=== PATIENT | female | born 1980 | race Caucasian/White ===

== ENCOUNTER 2018-01-18 12:01 | Emergency (ER) | payer OTHER, MEDICAID, SELFPAY ==
--- NOTE | 2018-01-18 12:21 | ED.FEMALEGU ---
HPI - Female Genitourinary <HEIDI Nova - Last Filed: 01/19/18 12:40> General Chief complaint: Urogenital-Female Stated complaint: infection possibly from getting iud taken out Time Seen by Provider: 01/18/18 12:21 History of Present Illness HPI Narrative: 37-year-old female here for complaint of having white is vaginal discharge with follow odor over the last few days. She states that she has had vaginal infections in the past and is concerned that she has a new infection. She denies having any changes in sexual partners. She does have pain into her right pelvic region. She denies any fevers or chills. She denies any urinary symptoms. Last bowel movement was earlier today and was normal. No flank pain. Positive p.o. intake no nausea vomiting no other concerns or complaints MD Complaint: vaginal discharge Related Data Home Medications Medication Instructions Recorded Confirmed buprenorphine HCl 2 mg SUBLINGUAL QDAY #0 01/27/12 polyethylene glycol 3350 [Miralax] 17 gm PO QDAY #0 06/07/17 propranolol 10 mg PO BIDP #0 06/07/17 sennosides [senna] 8.6 mg PO PRN #0 06/07/17 gabapentin 300 mg PO DAILY 01/18/18 01/18/18 Previous Rx's Medication Instructions Recorded albuterol sulfate [Proventil HFA] 2 puff INH Q4-6H #1 inh 04/16/13 docusate sodium [Colace] 100 mg PO BIDP PRN #20 cap 06/07/17 metronidazole [Flagyl] 500 mg PO BID 7 Days #0 06/07/17 doxycycline monohydrate [Avidoxy] 100 mg PO BID #28 tab 01/18/18 metronidazole 500 mg PO BID #28 tab 01/18/18 Allergies Allergy/AdvReac Type Severity Reaction Status Date / Time No Known Drug Allergies Allergy Verified 01/18/18 12:53 Review of Systems <HEIDI Nova - Last Filed: 01/19/18 12:40> Constitutional Denies chills, Denies fever(s), Denies lethargy and Denies weakness Eyes Denies change in vision, Denies eye discharge, Denies irritation and Denies loss of vision ENT Ears, Nose, Mouth, and Throat: Denies change in voice, Denies neck pain and Denies sore throat Cardiovascular Denies chest pain, Denies irregular heart rhythm, Denies lightheadedness, Denies palpitations, Denies dyspnea, Denies dyspnea on exertion and Denies orthopnea Respiratory Denies cough, Denies dyspnea, Denies dyspnea on exertion and Denies wheezing Gastrointestinal Gastrointestinal: Denies abdominal pain, Denies change in bowel habits, Denies diarrhea, Denies nausea and Denies vomiting Genitourinary Reports pelvic pain and Reports vaginal discharge Musculoskeletal Denies neck pain Integumentary/Breasts Denies pruritus, Denies erythema, Denies rash and Denies wounds Neurologic Denies confusion, Denies loss of vision and Denies weakness Psychiatric Denies anxiety, Denies confusion, Denies depression, Denies homicidal ideation and Denies suicidal ideation Endocrine Denies palpitations Allergic/Immunologic Denies wheezing Exam <HEIDI Nova - Last Filed: 01/19/18 12:40> Initial Vital Signs Initial Vital Signs: Vital Signs Temperature 98.2 F 01/18/18 12:44 Pulse Rate 69 01/18/18 12:44 Respiratory Rate 20 01/18/18 12:44 Blood Pressure 133/90 H 01/18/18 12:44 Pulse Oximetry 99 01/18/18 12:44 Const General: cooperative and well developed Nutritional Appearance: well nourished Orientation: alert, awake, oriented x3 and not confused [facility] Mouth: oral mucosae normal and moist mucous membranes Eyes Eyelids: eyelids normal Conjunctivae: conjunctivae normal Sclera: sclerae normal Pupils: PERRL Resp Effort & Inspection: normal respiratory effort, able to speak in complete sentences, no respiratory distress and no use of accessory muscles Auscultation: clear to auscultation bilaterally, no rales, no rhonchi and no wheezes Cardio Rate: regular rate Rhythm: regular rhythm Heart Sounds: no click, no gallops, no murmurs and no rubs GI Inspection: non-distended Palpation: soft, no hepatosplenomegaly, No guarding, No pulsatile mass and tender (Right pelvic region) Auscultation: normal bowel sounds General: No CVA tenderness Speculum Exam - Vagina: normal appearance of the vagina and abnormal vaginal discharge white Speculum Exam - Cervix: normal appearance of the cervix, closed cervix, abnormal cervical discharge white, no lesions, no masses and cervical tenderness Bimanual Exam- Vagina & Uterus: cervical tenderness Bimanual Exam- Adnexa, other: adnexal tenderness Skin General: no rashes or lesions noted, No jaundice and No petechiae <DO Bhakti Boyd Last Filed: 01/19/18 15:01> Initial Vital Signs Initial Vital Signs: Vital Signs Temperature 98.2 F 01/18/18 12:44 Pulse Rate 69 01/18/18 12:44 Respiratory Rate 20 01/18/18 12:44 Blood Pressure 133/90 H 01/18/18 12:44 Pulse Oximetry 99 01/18/18 12:44 Course <HEIDI Nova - Last Filed: 01/19/18 12:40> Orders Ordered: Discontinued Medications Ceftriaxone Sodium 500 mg/ (Dextrose) 50 mls @ 100 mls/hr IV NOW ONE Stop: 01/18/18 15:00 Ceftriaxone Sodium 250 mg/ (Lidocaine HCl) 0.714 mls @ 2,570.4 mls/hr INJ NOW ONE Stop: 01/18/18 15:46 Last Infusion: 01/18/18 16:29 Dose: 0 mls/hr Admin: 01/18/18 16:01 Dose: 2,570.4 mls/hr Vital Signs - 8 hr 01/18/18 14:40 01/18/18 16:05 01/18/18 16:31 Pulse Rate 53 L 52 L 57 L Respiratory Rate 15 14 18 Blood Pressure 130/71 H Blood Pressure [Left Arm] 122/67 H 115/68 Pulse Oximetry 100 100 100 <DO Bhakti Boyd Last Filed: 01/19/18 15:01> Orders Ordered: Discontinued Medications Ceftriaxone Sodium 500 mg/ (Dextrose) 50 mls @ 100 mls/hr IV NOW ONE Stop: 01/18/18 15:00 Ceftriaxone Sodium 250 mg/ (Lidocaine HCl) 0.714 mls @ 2,570.4 mls/hr INJ NOW ONE Stop: 01/18/18 15:46 Last Infusion: 01/18/18 16:29 Dose: 0 mls/hr Admin: 01/18/18 16:01 Dose: 2,570.4 mls/hr Vital Signs - 8 hr 01/18/18 14:40 01/18/18 16:05 01/18/18 16:31 Pulse Rate 53 L 52 L 57 L Respiratory Rate 15 14 18 Blood Pressure 130/71 H Blood Pressure [Left Arm] 122/67 H 115/68 Pulse Oximetry 100 100 100 MDM - Female Genitourinary <HEIDI Nova - Last Filed: 01/19/18 12:40> Lab Data Result diagrams: 01/18/18 13:27 01/18/18 13:27 Lab Results 01/18/18 01/18/18 01/18/18 Range/Units 13:27 13:27 14:45 WBC 5.1 (4.5-11.0) X10^3/uL RBC 3.82 L (4.0-5.2) X10^6/uL Hgb 12.2 (12.0-16.0) g/dL Hct 35.6 L (36-46) % MCV 93.1 (80-100) fL MCH 32.0 (26-34) PG MCHC 34.3 (30-36) % RDW 13.7 (11.6-14.8) % Plt Count 147 L (150-400) X10^3/uL Neut % (Auto) 44.8 L (50-75) % Lymph % (Auto) 41.3 H (25-40) % [place] % (Auto) 8.9 (3-14) % Eos % (Auto) 4.0 (2-4) % Baso % (Auto) 1.0 (0-2) % Neut # (Auto) 2300 L (8488-9988) /uL Sodium 140 (137-145) mmol/L Potassium 4.7 (3.4-5.1) mmol/L Chloride 101 (98-107) mmol/L Carbon Dioxide 30 (22-32) mmol/L BUN 12 (7-17) mg/dL Creatinine 0.70 (0.52-1.04) mg/dL Estimated GFR > 60.0 (>60) mL/min BUN/Creatinine Ratio 17.1 (6-22) Glucose 83 (70-100) mg/dL Calcium 9.9 (8.4-10.2) mg/dL Total Bilirubin 0.9 (0.2-1.3) mg/dL AST 25 (14-36) IU/L ALT 38 (9-52) IU/L Alkaline Phosphatase 46 (38-126) U/L Total Protein 6.9 (6.3-8.2) g/dL Albumin 4.2 (3.5-5.0) g/dL Globulin 2.7 (1.7-4.1) g/dL Albumin/Globulin Ratio 1.6 (1.0-2.8) Lipase 70 (23-300) U/L Urine Color Yellow Urine Appearance Clear Urine pH 5.0 (4.5-8.0) Ur Specific [place] 1.015 (1.000-1.035) Urine Protein Negative (Negative) Urine Glucose (UA) Negative (Normal) g/dL Urine Ketones 1+ H (NEGATIVE) Urine Occult Blood Negative (Negative) Urine Nitrate Negative (Negative) Urine Bilirubin Negative (NEGATIVE) Urine Urobilinogen 0.2 (0.2) E.U./dL Ur Leukocyte Esterase Negative (NEGATIVE) Urine RBC None seen (0-5/HPF) Urine WBC None seen (0-5/HPF) Ur Squamous Epith Cells 0-1 /hpf Urine Bacteria None seen (None) Urine Mucus 1+ H (Negative) Ur Culture Indicated? Cult not indicated Micro UA Comment Not Reportable Imaging Data pelvic US: Radiologist's impression: PROCEDURE: US PELVIC COMPLETE INDICATIONS: RIGHT PELVIC PAIN TECHNIQUE: Real-time scanning was performed of the pelvic organs, with image documentation. Additional endovaginal scanning was necessary due to incomplete visualization of the adnexal and endometrial structures by transabdominal scanning. COMPARISON: [facility], US, ABDOMEN COMPLETE, 06/07/2017, 12:48. FINDINGS: Transabdominal scanning: Limited scanning through the kidneys shows no hydronephrosis. No pathologic free abdominal or pelvic fluid. Endovaginal scanning: Uterus: Uterus is normal in size at 10.0 x 4.3 x 6.1 CM cm. The endometrium measures 10 mm in combined thickness. There is a 2.3 x 2.5 x 2.0 cm mass in the endometrium with no internal vascularity on Doppler exam. Ovaries: Right ovary measures 3.1 x 1.2 x 2.3 CM. The left ovary measures 2.2 x 1.6 x 1.7 CM. There is a mildly complex cyst in the right ovary measuring 2.3 x 2.5 x 2.0 CM. IMPRESSION: 1. Avascular mass in the mid and endometrium may represent clot, a submucosal fibroid, endometrial hyperplasia or less likely endometrial malignancy given the patient's age. Recommend short-term sonographic followup. If findings persist an endometrial biopsy may be needed. 2. Mildly complex right ovarian cyst does not meet criteria to require radiographic followup given the patient's young age. Dictated by: Baltazar Prakash M.D. on 01/18/2018 at 14:12 Approved by: Baltazar Prakash M.D. on 01/18/2018 at 14:17 [facility] Narrative Medical decision making narrative: Pelvic ultrasound was obtained and shows a right ovarian cyst and possible clot or fibroids to the endometrium. Wet prep was obtained and is positive for clue cells. Will treat for bacterial vaginosis however due to a tenderness on exam to adnexa will also cover for PID although some of this discomfort may be due to ovarian cyst. [id number] Tylenol Motrin as needed for discomfort. Follow up with primary care provider next week for re-evaluation. For any worsening symptoms return to the emergency room. GC swab is pending, vaginal culture is also pending. <Lizbeth Phipps, - Last Filed: 01/19/18 15:01> Lab Data Lab Results 01/18/18 01/18/18 01/18/18 Range/Units 13:27 13:27 14:45 WBC 5.1 (4.5-11.0) X10^3/uL RBC 3.82 L (4.0-5.2) X10^6/uL Hgb 12.2 (12.0-16.0) g/dL Hct 35.6 L (36-46) % MCV 93.1 (80-100) fL MCH 32.0 (26-34) PG MCHC 34.3 (30-36) % RDW 13.7 (11.6-14.8) % Plt Count 147 L (150-400) X10^3/uL Neut % (Auto) 44.8 L (50-75) % Lymph % (Auto) 41.3 H (25-40) % [place] % (Auto) 8.9 (3-14) % Eos % (Auto) 4.0 (2-4) % Baso % (Auto) 1.0 (0-2) % Neut # (Auto) 2300 L (9767-8321) /uL Sodium 140 (137-145) mmol/L Potassium 4.7 (3.4-5.1) mmol/L Chloride 101 (98-107) mmol/L Carbon Dioxide 30 (22-32) mmol/L BUN 12 (7-17) mg/dL Creatinine 0.70 (0.52-1.04) mg/dL Estimated GFR > 60.0 (>60) mL/min BUN/Creatinine Ratio 17.1 (6-22) Glucose 83 (70-100) mg/dL Calcium 9.9 (8.4-10.2) mg/dL Total Bilirubin 0.9 (0.2-1.3) mg/dL AST 25 (14-36) IU/L ALT 38 (9-52) IU/L Alkaline Phosphatase 46 (38-126) U/L Total Protein 6.9 (6.3-8.2) g/dL Albumin 4.2 (3.5-5.0) g/dL Globulin 2.7 (1.7-4.1) g/dL Albumin/Globulin Ratio 1.6 (1.0-2.8) Lipase 70 (23-300) U/L Urine Color Yellow Urine Appearance Clear Urine pH 5.0 (4.5-8.0) Ur Specific [place] 1.015 (1.000-1.035) Urine Protein Negative (Negative) Urine Glucose (UA) Negative (Normal) g/dL Urine Ketones 1+ H (NEGATIVE) Urine Occult Blood Negative (Negative) Urine Nitrate Negative (Negative) Urine Bilirubin Negative (NEGATIVE) Urine Urobilinogen 0.2 (0.2) E.U./dL Ur Leukocyte Esterase Negative (NEGATIVE) Urine RBC None seen (0-5/HPF) Urine WBC None seen (0-5/HPF) Ur Squamous Epith Cells 0-1 /hpf Urine Bacteria None seen (None) Urine Mucus 1+ H (Negative) Ur Culture Indicated? Cult not indicated Micro UA Comment Not Reportable Discharge Plan Departure Patient Disposition: Home, Self-Care Clinical Impression: Bacterial vaginosis Discharge Date/Time: 01/18/18 16:31 Interventions: ED Discharge Assessment Last Done: 01/18/18 16:31 Instructions: DI for Bacterial Vaginosis Activity Restrictions/Additional Instructions: Ultrasound was obtained and shows that there is an ovarian cyst year right ovary that may be causing some of your discomfort. Ultrasound also showed an area to the uterus that could be a blood clot or could be fibroids. Recommend following up with primary care provider next week for continued follow-up and monitoring. Laboratory results show positive for bacterial vaginosis you have been placed on antibiotics use as directed. Due to tenderness to the abdomen/pelvic region will also cover for pelvic inflammatory disease. Use [id number] Tylenol Motrin as needed for any discomfort. For any worsening symptoms return to the emergency room. Prescriptions: New metronidazole 500 mg tablet 500 mg PO BID Qty: 28 RF: 0 doxycycline monohydrate [Avidoxy] 100 mg tablet 100 mg PO BID Qty: 28 RF: 0 No Action buprenorphine HCl 8 MG tablet, sublingual 2 mg Sublingual QDAY Qty: 0 RF: 0 albuterol sulfate [Proventil HFA] 90 MCG/PUFF HFA aerosol inhaler 2 puff INH Q4-6H Qty: 1 RF: 1 sennosides [senna] 8.6 MG tablet 8.6 mg PO PRN Qty: 0 RF: 0 polyethylene glycol 3350 [Miralax] 119 GM powder 17 gm PO QDAY Qty: 0 RF: 0 propranolol 20 MG tablet 10 mg PO BIDP Qty: 0 RF: 0 metronidazole [Flagyl] 500 MG tablet 500 mg PO BID 7 Days Qty: 0 RF: 0 docusate sodium [Colace] 100 MG capsule 100 mg PO BIDP PRNQty: 20 RF: 0 gabapentin 300 mg Capsule 300 mg PO DAILY RF: 0 Referrals: Louise Connelly PA-C [Primary Care Provider] - <Lizbeth Phipps DO - Last Filed: 01/19/18 15:01> Cosign ED Attending Reinier Attestation: I was immediately available in the department for consultation. Documentation has been reviewed. I agree with assessment and plan.
[2018-01-18 12:44] VITALS: BP 133/90; PULSE 69; RESP 20; TEMP 36.8; O2SAT 99
--- NOTE | 2018-01-18 13:01 | DI.US.S_ITS ---
PROCEDURE: US PELVIC COMPLETE INDICATIONS: RIGHT PELVIC PAIN TECHNIQUE: Real-time scanning was performed of the pelvic organs, with image documentation. Additional endovaginal scanning was necessary due to incomplete visualization of the adnexal and endometrial structures by transabdominal scanning. COMPARISON: [facility], , ABDOMEN COMPLETE, 06/07/2017, 12:48. FINDINGS: Transabdominal scanning: Limited scanning through the kidneys shows no hydronephrosis. No pathologic free abdominal or pelvic fluid. Endovaginal scanning: Uterus: Uterus is normal in size at 10.0 x 4.3 x 6.1 CM cm. The endometrium measures 10 mm in combined thickness. There is a 2.3 x 2.5 x 2.0 cm mass in the endometrium with no internal vascularity on Doppler exam. Ovaries: Right ovary measures 3.1 x 1.2 x 2.3 CM. The left ovary measures 2.2 x 1.6 x 1.7 CM. There is a mildly complex cyst in the right ovary measuring 2.3 x 2.5 x 2.0 CM. IMPRESSION: 1. Avascular mass in the mid and endometrium may represent clot, a submucosal fibroid, endometrial hyperplasia or less likely endometrial malignancy given the patient's age. Recommend short-term sonographic followup. If findings persist an endometrial biopsy may be needed. 2. Mildly complex right ovarian cyst does not meet criteria to require radiographic followup given the patient's young age. Dictated by: Baltazar Prakash M.D. on 01/18/2018 at 14:12 Approved by: Baltazar Prakash M.D. on 01/18/2018 at 14:17
[2018-01-18 13:34] LABS: Add Manual Diff / Slide Review NO; Hematocrit 35.6 % (36-46); Hemoglobin 12.2 g/dL (12.0-16.0); Lymphocytes Percent Auto 41.3 % (25-40); Mean Corpuscular HGB Conc 34.3 % (30-36); Mean Corpuscular Volume 93.1 fL (80-100); Monocytes Percent Auto 8.9 % (3-14); Neutrophils Absolute Auto 2300 /uL (3000-5900); Neutrophils Percent Auto 44.8 % (50-75); Platelet Count 147 X10^3/uL (150-400); Red Blood Cell Count 3.82 X10^6/uL (4.0-5.2); Red Cell Distribution Width 13.7 % (11.6-14.8); White Blood Cell Count 5.1 X10^3/uL (4.5-11.0)
[2018-01-18 13:48] LABS: Alanine Aminotransferase 38 IU/L (9-52); Albumin 4.2 g/dL (3.5-5.0); Albumin Globulin Ratio 1.6 (1.0-2.8); Alkaline Phosphatase 46 U/L (38-126); Aspartate Aminotransferase 25 IU/L (14-36); BUN Creatinine Ratio 17.1 (6-22); Bilirubin Total 0.9 mg/dL (0.2-1.3); Blood Urea Nitrogen 12 mg/dL (7-17); Calcium 9.9 mg/dL (8.4-10.2); Carbon Dioxide 30 mmol/L (22-32); Chloride 101 mmol/L (98-107); Estimated Glomerular Filt Rate > 60.0 mL/min (>60); Globulin 2.7 g/dL (1.7-4.1); Glucose 83 mg/dL (70-100); HEMOLYSIS < 15 (0-50); Lipase 70 U/L (23-300); Potassium 4.7 mmol/L (3.4-5.1); Sodium 140 mmol/L (137-145); Total Protein 6.9 g/dL (6.3-8.2)
[2018-01-18 14:40] VITALS: BP 122/67; PULSE 53; RESP 15; O2SAT 100
[2018-01-18 14:49] LABS: Bacteria Urine None Seen; RBC Urine None Seen (0-5/HPF); WBC Urine None Seen (0-5/HPF)
[2018-01-18 15:03] LABS: Appearance Urine UA CLEAR; Bilirubin Urine UA NEGATIVE (NEGATIVE); Color Urine UA YELLOW; Glucose Urine UA NEGATIVE (Normal); Ketones Urine UA 1+ (NEGATIVE); Leukocyte Esterase Urine UA NEGATIVE (NEGATIVE); Nitrite Urine UA Negative (Negative); Occult Blood Urine UA NEGATIVE (Negative); Protein Urine UA NEGATIVE (Negative); Specific Gravity Urine UA 1.015 (1.000-1.035); Urobilinogen Urine UA 0.2 E.U./dL (0.2)
[2018-01-18 15:16] LABS: Culture Indicated Urine Cult Not Indicated; Mucus Urine 1+ (Negative); Squamous Epithelial Cell Urine 0-1 /HPF
[2018-01-18] MEDS: LIDOCAINE 1% INJ (16:01)
[2018-01-18] MEDS: CEFTRIAXONE INJ (16:01)
[2018-01-18 16:05] VITALS: BP 115/68; PULSE 52; RESP 14; O2SAT 100
--- NOTE | 2018-01-18 16:30 | PC.NURSE ---
ceftriaxone given as im injection. pharmacy made up. no adverse reactions noted.
[2018-01-18 16:31] VITALS: BP 130/71; PULSE 57; RESP 18; O2SAT 100
[2018-01-25 12:00] LABS: C.trachomatis RNA NOT DETECTED; N.gonorrhoeae RNA NOT DETECTED
== END 2018-01-18 16:31 | disposition home or self-care (01) ==
PROVIDERS: Emergency Provider Nurse Practitioner Family; Family Provider Physician Assistant; PCP Physician Assistant
DX: N76.0 Acute vaginitis (principal); B96.89 Other specified bacterial agents as the cause of diseases classified elsewhere
CPT/HCPCS: 76830; 76856; 80053; 81001; 83690; 85025; 87070; 87077; 87205; 87210; 87491; 87591; 96374; 99283; 99284; J0696

== ENCOUNTER 2019-09-12 18:45 | Emergency (ER) | payer OTHER, MEDICAID, SELFPAY ==
[2019-09-12 18:50] VITALS: BP 163/97; PULSE 127; RESP 14; TEMP 36.6; O2SAT 100; BMI 20.7
--- NOTE | 2019-09-12 21:10 | ED.NAVMDI ---
HPI - Nausea/Vomiting/Diarrhea General Chief complaint: Nausea/Vomiting/Diarrhea Stated complaint: states she has the flu for the past week. Time Seen by Provider: 09/12/19 21:10 Source: patient Mode of arrival: Ambulatory Limitations: no limitations History of Present Illness HPI Narrative: 39-year-old female comes to the emergency department complaining that she has been feeling hot but has not checked her temperature. She has not had any cough cold or upper respiratory symptoms. She has had nausea and vomiting for several days. She states she has been able to tolerate oral fluids for the last 12 hours. She states she has not had abdominal pain feels like there some sore little kicks in her belly. They do not really feel like cramps they feel more like a cake. She states she is not . She states that she has not had any diarrhea or constipation. She has had normal soft bowel movements. She has not any back or flank pain. She denies any frequency, dysuria or urgency. She denies any vaginal discharge. She is having vaginal bleeding and is finishing her menses. She states that she has slowly been improving. She has been feeling slightly dizzy but no syncope. No chest pain or shortness of breath. She has had some weight loss over the last week while not eating or drinking much. 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 She takes gabapentin for twitches. She denies any prior surgeries. Denies any allergies to medications. No tobacco, no alcohol or illicit. She denies any recent sick contacts. Related Data Home Medications Medication Instructions Recorded Confirmed propranolol 10 mg PO BIDP #0 06/07/17 06/15/19 sennosides [senna] 8.6 mg PO PRN #0 06/07/17 06/15/19 gabapentin 300 mg PO DAILY 01/18/18 06/15/19 Buprenorphn-naloxone See Rx Instructions .ROUTE .COMPLEX 01/26/18 06/15/19 Previous Rx's Medication Instructions Recorded albuterol sulfate [Proventil HFA] 2 puff INH Q4-6H #1 inh 04/16/13 doxycycline monohydrate [Avidoxy] 100 mg PO BID #28 tab 07/18/18 calcipotriene 0.005 % topical 1 applictn TOP BEDTIME #120 gram 01/26/18 ointment loratadine 10 mg tablet 10 mg PO DAILY #30 tab 01/26/18 magnesium hydroxide 400 mg/5 mL See Rx Instructions PO BEDTIME PRN 01/26/18 oral suspension #360 ml Allergies Allergy/AdvReac Type Severity Reaction Status Date / Time No Known Drug Allergies Allergy Verified 09/12/19 18:50 Review of Systems Review of Systems ROS Unobtainable: All systems reviewed & are unremarkable except as noted in HPI and below Patient History Social History Smoking Status: Unknown if ever smoked Tobacco: How many years used: 15 second hand exposure: No alcohol intake: never substance use type: does not use Smoking Status: Unknown if ever smoked alcohol intake frequency: holidays/special occasions only Substance Use Type: does not use Exam Narrative Exam Narrative: GEN: well nourished, well appearing female, alert and oriented x 3, patient appears to be in mild distress. Patient is standing and walking around the room when I walk in. HEENT: Atraumatic, pupils are equal round reactive to light, extraocular movements are intact. HEART: Regular rate and rhythm without murmur, clicks, rubs. LUNGS:Lungs clear to auscultation, no wheezes, rales, crackles, chest moves symmetrically ABD:bowel sounds normal, soft, non-tender, no guarding, rebound, rigidity, no masses noted, no hepatosplenomegaly :No CVA tenderness MSCL: Non-tender, no muscle atrophy, full range of motion, normal gait NEURO:CN 2-12 intact, sensation normal SKIN: Rash, erythema or skin changes. Initial Vital Signs Initial Vital Signs: Vital Signs Temperature 97.9 F 09/12/19 18:50 Pulse Rate 127 H 09/12/19 18:50 Respiratory Rate 14 09/12/19 18:50 Blood Pressure 163/97 H 09/12/19 18:50 Pulse Oximetry 100 09/12/19 18:50 Course Vital Signs Vital signs: Vital Signs - 8 hr 09/12/19 21:35 Pulse Rate 86 Respiratory Rate 15 Blood Pressure 153/91 H Pulse Oximetry 100 MDM - Nausea/Vomiting/Diarrhea Lab Data Labs: Point of Care Testing Test Results Negative Urine Dip Bedside Urine Glucose Negative Bedside Urine Bilirubin - Negative Bedside Urine Ketone +++ 80 Urine Specific [place] 1.025 Bedside Urine Occult Blood - Negative Bedside Urine pH 5.5 Bedside Urine Protein - Negative Bedside Urine Urobilinogen - Negative Bedside Urine Nitrite - Negative Bedside Urine Leukocytes - Negative Esterase MDM Narrative Medical decision making narrative: Discussed with patient she has been orally hydrating on her own today without any vomiting. Heart rate is a little elevated she likely is a little dry. Her symptoms have been slowly improving she has had about a week's worth of symptoms. She could potentially have influenza. Her symptoms are not consistent with recent coronavirus or upper respiratory infection. She shows on her urine ketones a little bit of protein. No signs of infection. is negative. Patient states she is not nauseated she has deferred any Zofran or antinausea medication. She is tolerating orals here in the department. Her tachycardia slightly improved and she is ambulating without any issue. I suspect she may have influenza or gastroenteritis type bug that is been causing her symptoms and that she is improving as her symptoms are resolving at this is on the correct time line. Discussed with the patient she should continue to hydrate and we discussed return precautions. Discharge Plan Departure Patient Disposition: Home Clinical Impression: Nausea, Abdominal discomfort Discharge Date/Time: 09/12/19 21:37 Instructions: DI for Dehydration -- Adult Activity Restrictions/Additional Instructions: Follow-up with your primary care physician in the next several days if your symptoms are not resolving. Continue to orally hydrate, advanced your diet as tolerated. Return to the ER for persistently high fevers greater 100.4 F, new shortness of breath, passing out, persistent vomiting, black or bloody stools, abdominal pain, inability urinate or other new or concerning symptoms. Prescriptions: No Action Buprenorphn-naloxone See Rx Instructions .ROUTE .COMPLEX RF: 0 magnesium hydroxide [Artis Milk of Magnesia] 400 mg/5 mL suspension See Rx Instructions PO BEDTIME PRN (Reason: constipation) Qty: 360 RF: 1 loratadine [Allergy Relief (loratadine)] 10 mg tablet 10 mg PO DAILY Qty: 30 RF: 3 calcipotriene 0.005 % ointment 1 applictn TOP BEDTIME Qty: 120 RF: 3 albuterol sulfate [Proventil HFA] 90 MCG/PUFF HFA aerosol inhaler 2 puff INH Q4-6H Qty: 1 RF: 1 sennosides [senna] 8.6 MG tablet 8.6 mg PO PRN Qty: 0 RF: 0 propranolol 20 MG tablet 10 mg PO BIDP Qty: 0 RF: 0 gabapentin 300 mg Capsule 300 mg PO DAILY RF: 0 doxycycline monohydrate [Avidoxy] 100 mg tablet 100 mg PO BID Qty: 28 RF: 0 Referrals: Louise Connelly PA-C [Primary Care Provider] -
[2019-09-12 21:35] VITALS: BP 153/91; PULSE 86; RESP 15; O2SAT 100
== END 2019-09-12 21:37 | disposition home or self-care (01) ==
PROVIDERS: Emergency Provider Emergency Medicine; Family Provider Physician Assistant; PCP Physician Assistant
DX: R10.9 Unspecified abdominal pain (principal); R11.0 Nausea; R19.7 Diarrhea, unspecified; R00.0 Tachycardia, unspecified
CPT/HCPCS: 81003; 81025; 99282

== ENCOUNTER → 2020-01-29 13:39 | Outpatient (CLI) | payer OTHER, MEDICAID, SELFPAY ==
[2020-01-29 13:59] LABS: Add Manual Diff / Slide Review NO; Basophils Absolute Auto 100 /uL (0-100); Basophils Percent Auto 1.1 % (0-2); Eosinophils Absolute Auto 100 /uL (0-450); Hematocrit 34.6 % (36-46); Hemoglobin 11.6 g/dL (12.0-16.0); Lymphocytes Absolute Auto 2300 /uL (1100-4500); Mean Corpuscular HGB Conc 33.5 % (30-36); Mean Corpuscular Volume 92.4 fL (80-100); Monocytes Absolute Auto 300 /uL (0-900); Monocytes Percent Auto 7.3 % (3-14); Neutrophils Absolute Auto 1800 /uL (1500-7000); Neutrophils Percent Auto 38.6 % (50-75); Platelet Count 168 X10^3/uL (150-400); Red Blood Cell Count 3.74 X10^6/uL (4.0-5.2); Red Cell Distribution Width 13.2 % (11.6-14.8); White Blood Cell Count 4.6 X10^3/uL (4.5-11.0)
[2020-01-29 14:14] LABS: Alanine Aminotransferase 17 IU/L (<35); Albumin 4.3 g/dL (3.5-5.0); Albumin Globulin Ratio 1.7 (1.0-2.8); Alkaline Phosphatase 51 U/L (38-126); Aspartate Aminotransferase 27 IU/L (14-36); BUN Creatinine Ratio 16.7 (6-22); Bilirubin Total 1.3 mg/dL (0.2-1.3); Blood Urea Nitrogen 11 mg/dL (7-17); Calcium 9.7 mg/dL (8.4-10.2); Carbon Dioxide 26 mmol/L (22-32); Chloride 105 mmol/L (98-107); Estimated Glomerular Filt Rate > 60.0 mL/min (>60); Globulin 2.6 g/dL (1.7-4.1); Glucose 89 mg/dL (70-100); HEMOLYSIS < 15 (0-50); Potassium 4.3 mmol/L (3.4-5.1); Sodium 137 mmol/L (137-145); Total Protein 6.9 g/dL (6.3-8.2)
[2020-01-29 15:44] LABS: TSH w/ Reflex to FT4 3.08 uIU/mL (0.47-4.68)
== END ==
PROVIDERS: Family Provider Physician Assistant; PCP Registered Nurse; Referring Provider Registered Nurse; Visit Provider Registered Nurse
DX: D69.6 Thrombocytopenia, unspecified (principal); R53.83 Other fatigue
CPT/HCPCS: 36415; 80053; 84443; 85025

== ENCOUNTER → 2020-02-08 15:17 | Outpatient (CLI) | payer OTHER, MEDICAID, SELFPAY ==
[2020-02-08 16:59] LABS: Total Iron Binding Capacity 383 ug/dL (265-497)
[2020-02-08 17:28] LABS: Ferritin 13 ng/mL (6-137)
[2020-02-08 17:58] LABS: Folate > 20.0 ng/mL (2.76-20.0); Vitamin B12 869 pg/mL (239-931)
== END ==
PROVIDERS: Family Provider Physician Assistant; PCP Registered Nurse; Referring Provider Registered Nurse; Visit Provider Registered Nurse
DX: D69.6 Thrombocytopenia, unspecified (principal); R53.83 Other fatigue
CPT/HCPCS: 36415; 82607; 82728; 82746; 83550

== ENCOUNTER → 2020-02-14 13:59 | Outpatient (CLI) | payer OTHER, MEDICAID, SELFPAY ==
[2020-02-14 14:14] LABS: Occult Blood 1 Negative (Negative); Occult Blood 2 Negative (Negative); Occult Blood 3 Negative (Negative)
== END ==
PROVIDERS: Family Provider Physician Assistant; PCP Registered Nurse; Referring Provider Registered Nurse; Visit Provider Registered Nurse
DX: D69.6 Thrombocytopenia, unspecified (principal); R53.83 Other fatigue
CPT/HCPCS: 82270

== ENCOUNTER → 2020-12-19 11:26 | Outpatient (CLI) | payer OTHER, MEDICAID, SELFPAY ==
[2020-12-19 12:31] LABS: Add Manual Diff / Slide Review NO; Basophils Absolute Auto 0 /uL (0-100); Basophils Percent Auto 0.6 % (0-2); Eosinophils Absolute Auto 100 /uL (0-450); Eosinophils Percent Auto 2.4 % (2-4); Hematocrit 36.7 % (36-46); Hemoglobin 12.2 g/dL (12.0-16.0); Lymphocytes Absolute Auto 2100 /uL (1100-4500); Lymphocytes Percent Auto 37.8 % (25-40); Mean Corpuscular HGB Conc 33.2 % (30-36); Mean Corpuscular Hemoglobin 31.1 PG (26-34); Mean Corpuscular Volume 93.6 fL (80-100); Monocytes Absolute Auto 400 /uL (0-900); Monocytes Percent Auto 6.4 % (3-14); Neutrophils Absolute Auto 3000 /uL (1500-7000); Neutrophils Percent Auto 52.8 % (50-75); Platelet Count 173 X10^3/uL (150-400); Red Blood Cell Count 3.92 X10^6/uL (4.0-5.2); White Blood Cell Count 5.7 X10^3/uL (4.5-11.0)
[2020-12-19 13:06] LABS: Alanine Aminotransferase 21 IU/L (<35); Albumin 4.2 g/dL (3.5-5.0); Albumin Globulin Ratio 1.5 (1.0-2.8); Alkaline Phosphatase 54 U/L (38-126); Aspartate Aminotransferase 32 IU/L (14-36); BUN Creatinine Ratio 14.1 (6-22); Bilirubin Total 0.8 mg/dL (0.2-1.3); Blood Urea Nitrogen 10 mg/dL (7-17); Calcium 9.6 mg/dL (8.4-10.2); Carbon Dioxide 26 mmol/L (22-32); Chloride 105 mmol/L (98-107); Estimated Glomerular Filt Rate > 60.0 mL/min (>60); Globulin 2.8 g/dL (1.7-4.1); Glucose 98 mg/dL (70-100); HEMOLYSIS < 15 (0-50); Potassium 3.7 mmol/L (3.4-5.1); Sodium 139 mmol/L (137-145)
[2020-12-19 13:09] LABS: Rheumatoid Factor 67.9 IU/mL (<12.0)
[2020-12-19 13:16] LABS: Total Iron Binding Capacity 318 ug/dL (265-497)
[2020-12-19 13:36] LABS: TSH w/ Reflex to FT4 3.23 uIU/mL (0.47-4.68)
[2020-12-19 13:40] LABS: Ferritin 19 ng/mL (6-137)
[2020-12-22 16:49] LABS: ANA Screen, IFA Negative (.)
== END ==
PROVIDERS: Family Provider Physician Assistant; PCP Registered Nurse; Referring Provider Registered Nurse; Visit Provider Registered Nurse
DX: R53.83 Other fatigue (principal); Z86.39 Personal history of other endocrine, nutritional and metabolic disease
CPT/HCPCS: 36415; 80053; 82728; 83550; 84443; 85025; 86038; 86430

== ENCOUNTER 2021-06-15 18:41 | Emergency (ER) | payer OTHER, MEDICAID, SELFPAY ==
[2021-06-15 19:08] VITALS: BP 142/67; PULSE 74; RESP 16; TEMP 36.6; O2SAT 100
== END 2021-06-15 21:59 | disposition left against medical advice (07) ==
PROVIDERS: Emergency Provider Emergency Medicine; Family Provider Physician Assistant; PCP Registered Nurse
DX: Z53.21 Procedure and treatment not carried out due to patient leaving prior to being seen by health care provider (principal)
CPT/HCPCS: 99281

== ENCOUNTER 2021-06-24 16:48 | Emergency (ER) | payer OTHER, MEDICAID, SELFPAY ==
[2021-06-24 16:52] VITALS: BP 155/98; PULSE 95; RESP 20; TEMP 37.2; O2SAT 100
[2021-06-24 18:25] LABS: Add Manual Diff / Slide Review NO; Basophils Absolute Auto 0 /uL (0-100); Basophils Percent Auto 0.5 % (0-2); Eosinophils Absolute Auto 100 /uL (0-450); Eosinophils Percent Auto 1.9 % (2-4); Hemoglobin 12.2 g/dL (12.0-16.0); Lymphocytes Absolute Auto 2000 /uL (1100-4500); Lymphocytes Percent Auto 37.3 % (25-40); Mean Corpuscular Hemoglobin 31.6 PG (26-34); Mean Corpuscular Volume 90.4 fL (80-100); Monocytes Absolute Auto 300 /uL (0-900); Monocytes Percent Auto 6.4 % (3-14); Neutrophils Absolute Auto 2800 /uL (1500-7000); Neutrophils Percent Auto 53.9 % (50-75); Platelet Count 167 X10^3/uL (150-400); Red Blood Cell Count 3.87 X10^6/uL (4.0-5.2); Red Cell Distribution Width 12.6 % (11.6-14.8); White Blood Cell Count 5.2 X10^3/uL (4.5-11.0)
--- NOTE | 2021-06-24 18:27 | ED.DENTAL ---
HPI - Dental/Oral <Godwin Rondon PA-C - Last Filed: 06/24/21 19:28> General Chief complaint: Dental/Oral Stated complaint: mouth pain Time Seen by Provider: 06/24/21 17:13 Source: patient Mode of arrival: Ambulatory History of Present Illness HPI Narrative: Patient is a 40-year-old female presenting to the emergency department for an evaluation right sided dental pain. Patient states that her pain began approximately 2 years ago after a cracked molar was removed. She states that last month she saw a dentist and had x-rays performed, however the x-rays returned normal. She explains that her pain began to worsen approximately 1 week ago with increased swelling in bleeding. She was seen at her family medicine practice on 06/16/2021 for her symptoms and was provided a prescription for Augmentin. She states that she has only 1 tablet leftover Augmentin and she believes that she is not improving. Of note, patient states that she can taste what she describes as infection. Patient states that she has a spot on the back of the right side of her head that has recently been shedding hair, and she explains that when she presses on the area she can feel increased pressure on the right upper portion of her jaw. Patient denies fever, chills, cough, shortness of breath, chest pain, nausea, vomiting, diarrhea, abdominal pain, dysuria, hematuria, nasal congestion, rhinorrhea, sore throat, or any other concerning symptoms. No other concerns were voiced at this time. Related Data Home Medications Medication Instructions Recorded Confirmed propranolol 20 mg tablet 10 mg PO BIDP #0 06/07/17 06/16/21 sennosides 8.6 mg tablet (senna) 8.6 mg PO PRN #0 06/07/17 06/16/21 Buprenorphn-naloxone See Rx Instructions .ROUTE .COMPLEX 01/26/18 06/16/21 terbinafine HCl 250 mg tablet 250 mg PO DAILY 12/19/20 06/16/21 Previous Rx's Medication Instructions Recorded albuterol sulfate 90 mcg/actuation 2 puff INH Q4-6H #1 inh 04/16/13 aerosol inhaler (Proventil HFA) magnesium hydroxide 400 mg/5 mL See Rx Instructions PO BEDTIME PRN 01/26/18 oral suspension (Artis Milk of #360 ml Magnesia) hydrocortisone 0.5 % topical 1 applictn TOP BID #28.35 gram 01/30/20 ointment loratadine 10 mg tablet (Allergy 10 mg PO DAILY PRN #30 tab 03/30/21 Relief (loratadine)) clindamycin HCl 300 mg capsule 300 mg PO BID 7 Days #14 cap 06/24/21 Allergies Allergy/AdvReac Type Severity Reaction Status Date / Time No Known Drug Allergies Allergy Verified 06/16/21 16:40 Review of Systems <Godwin Rondon PA-C - Last Filed: 06/24/21 19:28> Constitutional Constitutional: Denies chills, Denies fatigue, Denies fever(s), Denies frequent falls, Denies lethargy and Denies weakness Eyes Eyes: Denies loss of vision ENT Ears, Nose, Mouth, and Throat: Denies change in voice, Reports dental pain, Denies dizziness, Denies neck pain, Denies sore throat and Denies throat swelling Cardiovascular Cardiovascular: Denies chest pain, Denies irregular heart rhythm, Denies lightheadedness, Denies palpitations, Denies dyspnea, Denies dyspnea on exertion and Denies orthopnea Respiratory Respiratory: Denies cough, Denies dyspnea, Denies dyspnea on exertion and Denies wheezing Gastrointestinal Gastrointestinal: Denies abdominal pain, Denies change in bowel habits, Denies diarrhea, Denies nausea and Denies vomiting Genitourinary Genitourinary: Denies hematuria, Denies flank pain, Denies urinary incontinence and Denies urinary urgency Musculoskeletal Musculoskeletal: Denies back pain, Denies muscle weakness, Denies neck pain, Denies numbness and Denies tingling Integumentary/Breasts Skin/Breast: Denies pruritus, Denies erythema, Denies rash and Denies wounds Neurologic Neurologic: Denies behavioral changes, Denies confusion, Denies dizziness, Denies frequent falls, Denies loss of vision, Denies numbness, Denies tingling and Denies weakness Psychiatric Psychiatric: Denies behavioral changes and Denies confusion Endocrine Endocrine: Denies fatigue and Denies palpitations Allergic/Immunologic Allergic/Immunologic: Denies throat swelling and Denies wheezing Patient History <Godwin Rondon PA-C - Last Filed: 06/24/21 19:28> Medical History (Updated 06/24/21 @ 19:03 by Godwin Rondon PA-C) Breast pain, left Breast pain, right Fatigue Seborrheic dermatitis of scalp Thrombocytopenia Social History Smoking Status: Current every day smoker Tobacco: How many years used: 15 second hand exposure: No alcohol intake: never substance use type: does not use Smoking Status: Current every day smoker tobacco type: vaping alcohol intake frequency: holidays/special occasions only Substance Use Type: does not use Exam <Godwin Rondon PA-C - Last Filed: 06/24/21 19:28> Narrative Exam Narrative: GENERAL: 40 year old patient appears stated age. Well-developed patient, in mild distress. HEAD: Atraumatic. Normocephalic. EYES: Pupils equal round and reactive. Extraocular motions intact. No scleral icterus. No injection or drainage. ENT: Nose without bleeding, purulent drainage. Throat without erythema, tonsillar hypertrophy or exudate. Airway patent. Missing premolar on the right upper portion of the mouth with mild erythema noted along the gum line. No appreciable abscess formation noted. Uvula is midline. No active drainage appreciated. NECK: Trachea midline. Non tender CARDIOVASCULAR: Regular rate and rhythm without murmurs, gallops, or rubs. RESPIRATORY: Clear to auscultation. Breath sounds equal bilaterally. No wheezes, rales, or rhonchi. GASTROINTESTINAL: Abdomen soft, non-tender, nondistended. EXTREMITIES: No edema or joint tenderness. BACK: Nontender without deformity or crepitance. No flank tenderness. NEURO: AOx3. SKIN: No rash or erythema of visible areas Initial Vital Signs Initial Vital Signs: Vital Signs Temperature 98.9 F 06/24/21 16:52 Pulse Rate 95 H 06/24/21 16:52 Respiratory Rate 20 06/24/21 16:52 Blood Pressure 155/98 H 06/24/21 16:52 Pulse Oximetry 100 06/24/21 16:52 <Jaun Colin DO - Last Filed: 06/24/21 19:40> Initial Vital Signs Initial Vital Signs: Vital Signs Temperature 98.9 F 06/24/21 16:52 Pulse Rate 95 H 06/24/21 16:52 Respiratory Rate 20 06/24/21 16:52 Blood Pressure 155/98 H 06/24/21 16:52 Pulse Oximetry 100 06/24/21 16:52 Course <Godwin Rondon PA-C - Last Filed: 06/24/21 19:28> Course Course Narrative: CBC, BMP ordered. Orders Ordered: ED Orders 06/24/21 18:12 BMP [Basic Metabolic Panel] Stat CBC Auto Diff [Complete Blood Count AUTO DIFF] Stat Vital Signs Vital signs: Vital Signs - 8 hr 06/24/21 16:52 Temperature 98.9 F Pulse Rate 95 H Respiratory Rate 20 Blood Pressure 155/98 H Pulse Oximetry 100 <Jaun Colin DO - Last Filed: 06/24/21 19:40> Orders Ordered: ED Orders 06/24/21 18:12 BMP [Basic Metabolic Panel] Stat CBC Auto Diff [Complete Blood Count AUTO DIFF] Stat Vital Signs Vital signs: Vital Signs - 8 hr 06/24/21 16:52 Temperature 98.9 F Pulse Rate 95 H Respiratory Rate 20 Blood Pressure 155/98 H Pulse Oximetry 100 MDM - Dental/Oral <Godwin Rondon PA-C - Last Filed: 06/24/21 19:28> Lab Data Result diagrams: 06/24/21 18:12 06/24/21 18:12 Labs: Lab Results 06/24/21 06/24/21 Range/Units 18:12 18:12 WBC 5.2 (4.5-11.0) X10^3/uL RBC 3.87 L (4.0-5.2) X10^6/uL Hgb 12.2 (12.0-16.0) g/dL Hct 35.0 L (36-46) % MCV 90.4 (80-100) fL MCH 31.6 (26-34) PG MCHC 35.0 (30-36) % RDW 12.6 (11.6-14.8) % Plt Count 167 (150-400) X10^3/uL Neut % (Auto) 53.9 (50-75) % Lymph % (Auto) 37.3 (25-40) % [place] % (Auto) 6.4 (3-14) % Eos % (Auto) 1.9 L (2-4) % Baso % (Auto) 0.5 (0-2) % Neut # (Auto) 2800 (9053-9033) /uL Lymph # (Auto) 2000 (5048-2887) /uL [place] # (Auto) 300 (0-900) /uL Eos # (Auto) 100 (0-450) /uL Baso # (Auto) 0 (0-100) /uL Sodium 138 (137-145) mmol/L Potassium 4.0 (3.4-5.1) mmol/L Chloride 105 (98-107) mmol/L Carbon Dioxide 29 (22-32) mmol/L BUN 17 (7-17) mg/dL Creatinine 0.69 (0.52-1.04) mg/dL Estimated GFR > 60.0 (>60) mL/min BUN/Creatinine Ratio 24.6 H (6-22) Glucose 94 (70-100) mg/dL Calcium 9.7 (8.4-10.2) mg/dL MDM Narrative Medical decision making narrative: To consider dental caries versus dental abscess versus retropharyngeal abscess versus peritonsillar abscess. Overall physical examination, lab work,and history are reassuring. Discussed with patient results of lab work. Discussed with patient placing her on clindamycin to further treat her dental infection, but emphasized that if her symptoms do not improve with this 2nd course of antibiotics the likelihood a dental infection decreases. I mentioned that the patient should receive a 2nd opinion by her dentist for further evaluation. Patient understands and agrees to plan. Strict return precautions were discussed with patient prior to discharge. <Jaun Colin, DO - Last Filed: 06/24/21 19:40> Lab Data Labs: Lab Results 06/24/21 06/24/21 Range/Units 18:12 18:12 WBC 5.2 (4.5-11.0) X10^3/uL RBC 3.87 L (4.0-5.2) X10^6/uL Hgb 12.2 (12.0-16.0) g/dL Hct 35.0 L (36-46) % MCV 90.4 (80-100) fL MCH 31.6 (26-34) PG MCHC 35.0 (30-36) % RDW 12.6 (11.6-14.8) % Plt Count 167 (150-400) X10^3/uL Neut % (Auto) 53.9 (50-75) % Lymph % (Auto) 37.3 (25-40) % [place] % (Auto) 6.4 (3-14) % Eos % (Auto) 1.9 L (2-4) % Baso % (Auto) 0.5 (0-2) % Neut # (Auto) 2800 (5301-0532) /uL Lymph # (Auto) 2000 (1995-4601) /uL [place] # (Auto) 300 (0-900) /uL Eos # (Auto) 100 (0-450) /uL Baso # (Auto) 0 (0-100) /uL Sodium 138 (137-145) mmol/L Potassium 4.0 (3.4-5.1) mmol/L Chloride 105 (98-107) mmol/L Carbon Dioxide 29 (22-32) mmol/L BUN 17 (7-17) mg/dL Creatinine 0.69 (0.52-1.04) mg/dL Estimated GFR > 60.0 (>60) mL/min BUN/Creatinine Ratio 24.6 H (6-22) Glucose 94 (70-100) mg/dL Calcium 9.7 (8.4-10.2) mg/dL Discharge Plan Departure Patient Disposition: Home Clinical Impression: Dental infection Instructions: DI for Dental Pain Activity Restrictions/Additional Instructions: *You have been diagnosed with dental infection *What to do: *Please continue to take your regular medications as directed. [X] New medication prescriptions sent to your pharmacy: [facility] - Clindamycin [ ] New medication written as a paper prescription [ ] No new medications given *Please follow up with your primary care provider in 2-3 days, call for an appointment. Let them know you were seen in the Emergency Department and that we ask that you be seen in follow up. We will electronically transmit a record of today's note if your PCP is in our system *If you do not have a primary care provider please contact the [facility] Resource line at [phone]. They will ask some questions about your medical history and help get you set up with a doctor in the community. *Return to Emergency Department if you should have any new, worsening or concerning symptoms, such as fever greater than 101 F, shaking chills, worsening pain, persistent vomiting or other bothersome symptoms. Prescriptions: New clindamycin HCl 300 mg capsule 300 mg PO BID 7 Days Qty: 14 0RF No Action Buprenorphn-naloxone See Rx Instructions .ROUTE .COMPLEX 0RF Label Comments: 2 (0.5 mg) SL once daily. Rx Instructions: 2 (0.5 mg) SL once daily. magnesium hydroxide [Artis Milk of Magnesia] 400 mg/5 mL suspension See Rx Instructions PO BEDTIME PRN (Reason: constipation) Qty: 360 1RF Dose Instruction: 5 - 15ml PO BEDTIME PRN; Rx Instructions: 5 - 15ml PO BEDTIME PRN; albuterol sulfate [Proventil HFA] 90 MCG/PUFF HFA aerosol inhaler 2 puff INH Q4-6H Qty: 1 1RF sennosides [senna] 8.6 MG tablet 8.6 mg PO PRN Qty: 0 0RF propranolol 20 MG tablet 10 mg PO BIDP Qty: 0 0RF loratadine [Allergy Relief (loratadine)] 10 mg tablet 10 mg PO DAILY PRN (Reason: allergy symptoms) Qty: 30 5RF hydrocortisone 0.5 % ointment 1 applictn TOP BID Qty: 28.35 0RF terbinafine HCl 250 mg tablet 250 mg PO DAILY 0RF Referrals: Eduardo Ji ARNP [Primary Care Provider] - <Jaun Colin DO - Last Filed: 06/24/21 19:40> Cosign ED Attending Cosignature Attestation: Dr Colin Co-Sign Statement: I was available for consultation during this patient's emergency department visit. This chart is signed by myself for administrative purposes only. I did not have direct contact with this patient during this visit. They were seen independently by the APC.
[2021-06-24 18:42] LABS: BUN Creatinine Ratio 24.6 (6-22); Blood Urea Nitrogen 17 mg/dL (7-17); Calcium 9.7 mg/dL (8.4-10.2); Carbon Dioxide 29 mmol/L (22-32); Chloride 105 mmol/L (98-107); Estimated Glomerular Filt Rate > 60.0 mL/min (>60); Glucose 94 mg/dL (70-100); HEMOLYSIS < 15 (0-50); Sodium 138 mmol/L (137-145)
== END 2021-06-24 19:10 | disposition home or self-care (01) ==
PROVIDERS: Emergency Provider Physician Assistant; Family Provider Physician Assistant; PCP Registered Nurse
DX: K04.7 Periapical abscess without sinus (principal); F17.290 Nicotine dependence, other tobacco product, uncomplicated
CPT/HCPCS: 36415; 80048; 85025; 99283

== ENCOUNTER → 2021-09-10 16:33 | Outpatient (CLI) | payer OTHER, MEDICAID, SELFPAY ==
[2021-09-10 18:04] LABS: Free T3, Triiodothyronine Free 3.55 pg/mL (2.77-5.27); Free T4, Direct Thyroxine 1.46 ng/dL (0.78-2.19)
[2021-09-10 18:17] LABS: Thyroid Stimulating Hormone 2.37 uIU/mL (0.47-4.68)
== END ==
PROVIDERS: PCP Registered Nurse; Referring Provider Registered Nurse; Visit Provider Registered Nurse
DX: R53.83 Other fatigue (principal)
CPT/HCPCS: 36415; 84439; 84443; 84481

== ENCOUNTER → 2021-10-30 15:34 | Outpatient (CLI) | payer OTHER, MEDICAID, SELFPAY ==
--- NOTE | 2021-10-30 | DI.CT.S_ITS ---
PROCEDURE: CT SINUS SCREEN WO CON INDICATIONS: Chronic pansinusitis TECHNIQUE: Noncontrast 3.0 mm axial images acquired from the frontal sinuses to the mid-sella, with coronal and sagittal reformats. For radiation dose reduction, the following was used: automated exposure control, adjustment of mA and/or kV according to patient size. COMPARISON: [facility], MR, BRAIN W&W/O CONTRAST, 07/11/2014, 11:07. [facility], CT, BRAIN W/O CONTRAST, 07/27/2013, 17:25. FINDINGS: Image quality: Excellent. Maxillary Sinuses: No bony remodeling or destruction. Sinuses are clear. Ethmoid Air Cells: No bony remodeling or destruction. Sinuses are clear. Sphenoid Sinuses: No bony remodeling or destruction. Sinuses are clear. Frontal Sinuses: No bony remodeling or destruction. Sinuses are clear. Ostiomeatal Complexes: Ostiomeatal complexes are patent. No Chika cells. Miscellaneous: Visualized intra-orbital contents are normal. No sara bullosa or paradoxical turbinate curvature. There is mild rightward nasal septal deviation. IMPRESSION: No significant active paranasal sinus disease is seen. Mild rightward nasal septal deviation. No abnormal fluid is seen within the mastoid air cells. Dictated by: Jose Lui M.D. on 10/30/2021 at 15:01 Approved by: Jose Lui M.D. on 10/30/2021 at 15:02
== END ==
PROVIDERS: PCP Registered Nurse; Referring Provider Otolaryngology; Visit Provider Otolaryngology
DX: J32.4 Chronic pansinusitis (principal); K13.79 Other lesions of oral mucosa; J34.2 Deviated nasal septum
CPT/HCPCS: 70486

== ENCOUNTER → 2022-06-20 16:27 | Outpatient (CLI) | payer OTHER, MEDICAID, SELFPAY | PROVIDERS: PCP Internal Medicine; Visit Provider Nurse Practitioner Family | DX: R30.0 Dysuria (principal) | CPT/HCPCS: 81002; 87086 ==